=== PATIENT | male | born 1985 | race Native Hawaiian/Other Pacific Islander ===

== ENCOUNTER 2016-05-02 13:06 | Outpatient (CLI) | payer OTHER ==
--- NOTE | 2016-05-02 16:37 | XRay Report ---
LUMBAR SPINE THREE VIEWS: 05/02/16 13:06:00 CLINICAL: Back pain without radiation. FINDINGS: Normal vertebral body height, alignment and disk spaces. Mild lower thoracic and upper lumbar dextroscoliosis. The pedicles are intact. No fracture. Normal soft tissues. IMPRESSION: Mild scoliosis and otherwise normal.
== END 2016-05-02 13:07 | disposition home or self-care (01) ==
LOC: SPVIMAG 13:06
PROVIDERS: ATTEND Internal Medicine
DX: M41.86 Other forms of scoliosis, lumbar region (principal); M41.84 Other forms of scoliosis, thoracic region
CPT/HCPCS: 72100